=== PATIENT | male | born 1955 | race Caucasian/White ===

== ENCOUNTER 2016-10-18 19:33 | Emergency (ER) | payer OTHER ==
[~2016-10-18] VITALS: Ht 177.8 cm; Wt 90.7 kg
[2016-10-18 20:03] LABS: ABSOLUTE BASOPHIL COUNT 0 /CUMM (0.0-0.2); ABSOLUTE EOSINOPHIL COUNT 0.5 /CUMM (0.0-0.7); ABSOLUTE GRANULOCYTE CT 2.7 /CUMM (1.4-6.5); ABSOLUTE LYMPH COUNT 2.1 /CUMM (1.2-3.4); ABSOLUTE MONOCYTE COUNT 0.5 /CUMM (0.10-0.60); BASOPHIL % 0.6 % (0.0-2.0); EOSINOPHIL % 8.7 % (0-5); GRANULOCYTE % 47.1 % (42.2-75.2); HEMATOCRIT 43.9 % (42-52); MEAN CORPUSCULAR HGB 32.3 PG (27.0-31.0); MEAN CORPUSCULAR HGB CONC 35.1 G/DL (33.0-37.0); MEAN CORPUSCULAR VOLUME 92.1 FL (80.0-94.0); MEAN PLATELET VOLUME 8.3 FL (7.4-10.4); PLATELET COUNT 231 /CUMM (130-400); RBC DISTRIBUTION WIDTH 13.2 % (11.5-14.5); RED BLOOD CELL CT 4.77 /CUMM (4.70-6.10); WHITE BLOOD CELL COUNT 5.8 /CUMM (4.8-10.8)
--- NOTE | 2016-10-18 20:10 | ED GENERAL ADULT ---
History of Present Illness General Chief Complaint: General Adult Stated Complaint: R/O LYME DISEASE Source: patient Exam Limitations: no limitations Vital Signs & Intake/Output Vital Signs & Intake/Output Vital Signs Date Time Temp Pulse Resp B/P B/P Pulse O2 O2 Flow FiO2 Mean Ox Delivery Rate 10/18 2041 97.8 62 18 126/73 95 Room Air 10/18 2026 95 10/18 2006 100 Room Air ED Intake and Output 10/19 0000 10/18 1200 Intake Total Output Total Balance Patient 200 lb Weight Weight Reported by Patient Measurement Method Allergies Coded Allergies: NO KNOWN ALLERGIES (02/16/12) Reconcile Medications Doxycycline Hyclate (Vibramycin) 100 MG CAPSULE 1 CAP PO BID lyme Triage Note: PT TO ED "TO RULE OUT LYME DISEASE, MY DOG HAS IT AND NOW IM TIRED SO I JUST WANT TO MAKE SURE I DON'T HAVE IT" PT'S ONLY COMPLAINT IS "IM LETHARGIC" HAS NOT SEEN A TICK ON HIMSELF "BUT I MIGHT OF HAD A RASH A MONTH AGO" Triage Nurses Notes Reviewed? yes HPI: This patient is a 61 year old male with a past medical history including asthma who presented for Lyme Disease rule-out. He reported that his dog recently got diagnosed with Lyme Disease. The patient himself reported lethargy x6 weeks with some joint aches in his hips. He reported some mild, intermittent shortness of breath which is normal for him given history of asthma. He denied any chest pain , fevers, chills, abdominal pain, nausea, vomiting, or diarrhea. (VIKTOR PLATA,TRACY) Past History Travel History Traveled to [place] past 21 day No Medical History Any Pertinent Medical History? see below for history Neurological: NONE EENT: NONE Cardiovascular: NONE Respiratory: NONE Gastrointestinal: NONE Hepatic: NONE Renal: NONE Musculoskeletal: NONE Psychiatric: NONE Endocrine: NONE Blood Disorders: NONE Cancer(s): NONE Tetanus Vaccine: 02/16/12 Surgical History Surgical History: non-contributory Psychosocial History What is your primary language Slovak Tobacco Use: Current Daily Use Daily Tobacco Use Amount/Type: => 5 Cigarettes daily ETOH Use: occasional use Illicit Drug Use: denies illicit drug use Family History Hx Contributory? No (VIKTOR PLATA,TRACY) Review of Systems Review of Systems Constitutional: Reports: see HPI. EENTM: Reports: no symptoms. Respiratory: Reports: see HPI. Cardiovascular: Reports: no symptoms. GI: Reports: no symptoms. Genitourinary: Reports: no symptoms. Musculoskeletal: Reports: see HPI. Skin: Reports: no symptoms. Neurological/Psychological: Reports: no symptoms. All Other Systems: Reviewed and Negative (TRACY HOANG PA-C) Physical Exam Physical Exam General Appearance: well developed/nourished, no apparent distress, alert, awake Comments: General: Well-developed, well-nourished person in no acute distress HEENT: Head normocephalic, moist mucous membranes Neck: Supple with no lymphadenopathy Back: Normal gait Cardiovascular: Regular rate and rhythm with no murmurs, rubs or gallops Respiratory: Scattered wheezes with no rhonchi or rales Neuro: A&Ox3 Psych: Mood and affect normal Core Measures ACS in differential dx? No CVA/TIA Diagnosis: No Severe Sepsis Present: No Septic Shock Present: No (TRACY HOANG PA-C) Progress Differential Diagnoses I considered the following diagnoses in my evaluation of the patient: [Lyme Disease, Anaplasmosis, erlichiosis, viral syndome, mono] Plan of Care: Orders Procedure Date/time Status LYME TITRE 10/19 1939 Active HEPATIC FUNCTION PANEL 10/19 1939 Complete CBC WITHOUT DIFFERENTIAL 10/19 1939 Complete BASIC METABOLIC PANEL 10/19 1939 Complete Laboratory Tests 10/18/161950: Anion Gap 11, Estimated GFR > 60, BUN/Creatinine Ratio 18.0, Glucose 88, Calcium 9.4, Total Bilirubin 0.4, Direct Bilirubin 0.3, AST 26, ALT 41, Alkaline Phosphatase 83, Total Protein 7.2, Albumin 4.4, CBC w Diff NO MAN DIFF REQ, RBC 4.77, MCV 92.1, MCH 32.3 H, RDW 13.2, MPV 8.3, Gran % 47.1, Lymphocytes % 35.6, Monocytes % 8.0, Eosinophils % 8.7 H, Basophils % 0.6, Absolute Granulocytes 2.7, Absolute Lymphocytes 2.1, Absolute Monocytes 0.5, Absolute Eosinophils 0.5, Absolute Basophils 0, PUBS MCHC 35.1, Lyme Disease Antibody Pending Initial ED EKG: none (TRACY HOANG PA-C) Departure Departure Disposition: HOME OR SELF CARE Condition: Stable Clinical Impression Primary Impression: Fatigue Qualifiers: Fatigue type: unspecified Qualified Code: R53.83 - Other fatigue Referrals: PATIENT HAS NO PRIMARY CARE DR (PCP/Family) Additional Instructions: Please estabish a primary care physician. Take antibiotic as prescribed and for the full duration. Return for any worsening sympoms or concerns. Departure Forms: Customer Survey General Discharge Information Prescriptions: Current Visit Scripts Doxycycline Hyclate (Vibramycin) 1 CAP PO BID #[id number] CAP (TRACY HOANG PA-C) PA/TRANSPORT COORDINATOR Co-Sign Statement Statement: ED Attending supervision documentation- [] I saw and evaluated the patient. I have also reviewed all the pertinent lab results and diagnostic results. I agree with the findings and the plan of care as documented in the PA's/TRANSPORT COORDINATOR's documentation. [X] I have reviewed the ED Record and agree with the PA's/TRANSPORT COORDINATOR's documentation. [] Additions or exceptions (if any) to the PAs/TRANSPORT COORDINATOR's note and plan are summarized below: [] (INDIA CLAUDIO,STEPHANIE) Critical Care Note Critical Care Note Critical Care Time: non-applicable (TRACY HOANG PA-C)
[2016-10-18] MEDS ORDERED: VIBRAMYCIN100 MG PO (20:34)
[2016-10-18 20:42] VITALS: BP 126/73
== END 2016-10-18 20:44 ==
LOC: ERH 19:33
PROVIDERS: Physician Assistant Medical
DX: R53.83 Other fatigue (principal)
CPT/HCPCS: 1263; 86618